=== PATIENT | female | born 1985 | race Caucasian/White ===

== ENCOUNTER 2017-03-21 12:37 | Emergency (ER) | payer BC ==
[2017-03-21 13:47] LABS: BACTERIA, URINE MANY /hpf; COMMENT (UR) CULTURE INDICATED; CULTURE IF INDICATED CULTURE INDICATED; SQUAMOUS EPITHELIAL CELL URINE <1 /hpf (0-5)
[2017-03-21 13:49] LABS: BLOOD, URINE NEG (NEG); GLUCOSE,URINE NEG (NEG); KETONE, URINE NEG (NEG); NITRITE,URINE NEG (NEG); PH, URINE 6.5 (5.0-8.5); URINE COLOR LIGHT YELLOW (YELLW/STRAW)
[2017-03-21] MEDS ORDERED: LACTATED RINGER'S 1000 ML INJ 1,000 ML IV SCH (14:00)
[2017-03-21 14:15] VITALS: PULSE 74
[2017-03-21] MEDS: TERBUTALINE INJ 1 MG/ML AMP SQ PRN ×2 (14:16→15:04)
[2017-03-21 14:20] VITALS: PULSE 74
[2017-03-21] MEDS ORDERED: MACR100C2 PO (14:54)
--- NOTE | 2017-03-21 14:55 | PD ---
HPI Chief Complaint Back pain lower abdominal pain Date Seen: Mar 21, 2017 Time Seen: 13:00 Travel History International Travel<30 Days: No Contact w/Intl Traveler<30Days: No Known Affected Area: No History of Present Illness HPI Patient is 31-year-old white female at [address] Foley for care presents complaining of back pain generalized ,lower abdominal pain. Denies leakage of fluid bleeding or abdominal pain. heart rate tracing is reactive and she is having small frequent contractions Para: 0 : 1 History Social History Alcohol Use: No Tobacco Use: No Substance Abuse: No Allergies-Medications (Allergen,Severity, Reaction): Coded Allergies: No Known Allergies (Unverified , 03/21/17) Review of Systems General / Constitutional: No: Fever, Weight Gain, Chills, Other Eyes: No: Diploplia, Blurred Vision, Visual changes, Pain, Photophobia HENT: No: Headaches, Vertigo, Lightheadedness Cardiovascular: No: Irregular Rhythm, Chest Pain or Discomfort, Palpitations, Tachycardia, Syncope, Varicosities, Edema, Cyanosis Respiratory: No: Cough, Short of Breath, Other Gastrointestinal: No: Nausea, Vomiting, Diarrhea Genitourinary: Dysuria, No: Decreased Urinary Output, Oliguria Musculoskeletal: No: Limited ROM, Weakness, Cramping, Edema, Pain Skin: No Rash, No Itching, No Dryness, No Lumps, No Change in Pigmentation, No Change in Nails, No Alopecia, No Lesions Neurologic: No: Weakness, Dizziness, Syncope, Focal Abnormalities, Coordination Problem, Headache, Slurred Speech, Seizures Psychiatric: No: Depression, Suicidal Ideations, Homicidal Ideation Endocrine: No: Heat Intolerance, Cold Intolerance, Polydipsia, Polyuria, Other Physical Exam Vital Signs Date Time Temp Pulse Resp B/P Pulse Ox O2 Delivery O2 Flow Rate FiO2 03/21/17 14:20 74 03/21/17 14:15 74 Narrative GENERAL: Well-nourished, well-developed patient. SKIN: Warm and dry. HEAD: Normocephalic and atraumatic. EYES: No scleral icterus. No injection or drainage. ENT: No nasal drainage noted. Mucous membranes pink. Airway patent. NECK: Supple, trachea midline. No JVD. CARDIOVASCULAR: Regular rate and rhythm without murmurs, gallops, or rubs. RESPIRATORY: Breath sounds equal bilaterally. No accessory muscle use. BREASTS: Bilateral exam showed no masses , no retractions, no nipple discharge. ABDOMEN/GI: Abdomen soft, non-tender, bowel sounds present, no rebound, no guarding no CVA tenderness Gravid to [-24] weeks size Fundal Height: [-24] GENITOURINARY: External Genitalia: intact and normal in appearance fibronectin done in the posterior fornix and is negative Cervix: [-] Posterior Dilatation: [closed-] Effacement: [-thick] Station: [-3] Membranes: [intact ] Uterine Contractions: [Positive small frequent contractions-] FHT's: Category: [1-] Baseline: [133-] Reactive: [yes-] Variability: [-mod] Decels: [Occasional variable deceleration-] EXTREMITIES: No cyanosis or edema. BACK: Nontender without obvious deformity. No CVA tenderness. NEUROLOGICAL: Awake and alert. Motor and sensory grossly within normal limits. Five out of 5 muscle strength in all muscle groups. Normal speech. Data Data Orders Urinalysis - C+S If Indicated (03/21/17 13:31) Vital Signs (Adult) .ON ADMISSION (03/21/17 13:46) ^ Labor Status (03/21/17 13:46) Fibronectin (03/21/17 13:46) Lactated Ringer's 1000 Ml Inj (Lr 1000 M (03/21/17 14:00) Terbutaline Inj (Brethine Inj) (03/21/17 14:00) Fentanyl Inj (Fentanyl Inj) (03/21/17 14:00) Urine Culture (03/21/17 13:20) Labs Laboratory Tests Test 03/21/17 03/21/17 13:20 13:42 Urine Color LIGHT YELLOW Urine Turbidity CLEAR Urine pH 6.5 Urine Specific [place] 1.007 Urine Protein NEG Urine Glucose (UA) NEG Urine Ketones NEG Urine Occult Blood NEG Urine Nitrite NEG Urine Bilirubin NEGATIVE Urine Urobilinogen LESS THAN 2.0 Urine Leukocyte Esterase NEGATIVE Urine RBC 1 Urine WBC 1 Urine Squamous Epithelial <1 Cells Urine Bacteria MANY Microscopic Urinalysis Comment CULTURE INDICATED Fibronectin NEGATIVE Date/Time Procedure Status Source Growth 03/21/17 13:20 Urine Culture Received Urine Clean Catch Pending MDM Interpretation(s) Patient is 31-year-old white female at 24 weeks who presents planning of generalized back pain urinary tract symptoms patient says she feels like she has a UTI because it estes when she wipes but not during micturition. She has some lower abdominal discomfort. On here on OB ED she is estelle somewhat small frequent little contractions of low amplitude, there is no leakage of fluid or bleeding. Cervix is closed thick and high prior to cervical exam fibronectin that was done which was negative. The patient urinalysis showed many bacteria and was needed for culture but otherwise did not show much she was given liter of IV fluid 1 dose of subcutaneous terbutaline 0.25 mg and 25 g of fentanyl IV for tocolyse is. This was successful in that the contractions decreased to just barely perceptible to nonexistent Plan Plan to begin the patient on Macrobid 100 mg by mouth twice a day for to follow- up with her OB provider. She is to increase her fluid intake at home Tylenol liberally when necessary for pain and she can use a heating pad or hot bath for comfort measures. Diagnosis Diagnosis: Primary Impression: UTI (urinary tract infection) in in third trimester Additional Impression: Uterine contractions during Disposition: 01 DISCHARGE HOME Condition: Stable Scripts Nitrofurantoin Monohydrate Macrocrystals (Macrobid)100 Mg Vib159 Mg PO BID #14 CAP Ref 0 Prov:Roger Valdez II, MD 03/21/17 Patient Instructions: General Instructions, Diet (GEN), Having Your Baby: The Labor Process (GEN) Departure Forms: Tests/Procedures Roger Valdez II, MD Mar 21, 2017 14:54
[2017-03-21] MEDS ORDERED: TERBUTALINE INJ 1 MG/ML AMP SQ ONE (16:00)
== END 2017-03-21 15:58 | disposition home or self-care (01) ==
LOC: HOBED 12:37
DX: O23.42 Unspecified infection of urinary tract in pregnancy, second trimester (principal); O62.9 Abnormality of forces of labor, unspecified; Z3A.24 24 weeks gestation of pregnancy
CPT/HCPCS: 81001; 82731; 87086; 96372; 96374; 99284; J3010; J3105; J7120

== ENCOUNTER 2017-07-07 01:41 | Inpatient (IN) | payer BC ==
[~2017-07-07] VITALS: Ht 182.9 cm; Wt 79.4 kg
[2017-07-07] VITALS (12 sets, daily range): BP systolic 88–140; BP diastolic 54–102; PULSE 59–181; RESP 16–18; TEMP 97.7–99.2
[~2017-07-07 01:41] MED LIST: MACR100C2 PO
[2017-07-07] MEDS ORDERED: LACTATED RINGER'S 1000 ML INJ 1,000 ML IV PRN (02:08)
[2017-07-07] MEDS ORDERED: LACTATED RINGER'S 1000 ML INJ 1,000 ML IV SCH (02:08)
--- NOTE | 2017-07-07 02:08 | HHI.HP ---
HPI Chief Complaint Contraction pain Date Seen: Jul 07, 2017 Time Seen: 02:00 Travel History International Travel<30 Days: No Contact w/Intl Traveler<30Days: No Known Affected Area: No History of Present Illness HPI This patient is 32-year-old white female at 40 weeks gestation presents complaining of contraction pain. Denies bleeding or leakage of fluid. heart rate tracing is reactive and she is estelle every 3 minutes, she sees Dr. Foley for care and saw her yesterday morning was closed she's currently 5 cm 90% -1 Weeks Gestation: 40 Para: 0 : 1 History Social History Alcohol Use: No Tobacco Use: No Substance Abuse: No Allergies-Medications (Allergen,Severity, Reaction): Coded Allergies: No Known Allergies (Unverified , 03/21/17) Home Meds Active Scripts Nitrofurantoin Monohydrate Macrocrystals (Macrobid) 100 Mg Cap, 100 MG PO BID for Infection, #14 CAP 0 Refills Prov:Roger Valdez II, MD 03/21/17 Review of Systems General / Constitutional: No: Fever, Weight Gain, Chills, Other Eyes: No: Diploplia, Blurred Vision, Visual changes, Pain, Photophobia HENT: No: Headaches, Vertigo, Lightheadedness Cardiovascular: No: Irregular Rhythm, Chest Pain or Discomfort, Palpitations, Tachycardia, Syncope, Varicosities, Edema, Cyanosis Respiratory: No: Cough, Short of Breath, Other Gastrointestinal: Abdominal Pain, No: Nausea, Vomiting, Diarrhea Genitourinary: No: Decreased Urinary Output, Oliguria Musculoskeletal: No: Limited ROM, Weakness, Cramping, Edema, Pain Skin: No Rash, No Itching, No Dryness, No Lumps, No Change in Pigmentation, No Change in Nails, No Alopecia, No Lesions Neurologic: No: Weakness, Dizziness, Syncope, Focal Abnormalities, Coordination Problem, Headache, Slurred Speech, Seizures Psychiatric: No: Depression, Suicidal Ideations, Homicidal Ideation Endocrine: No: Heat Intolerance, Cold Intolerance, Polydipsia, Polyuria, Other Physical Exam Narrative GENERAL: Well-nourished, well-developed patient. SKIN: Warm and dry. HEAD: Normocephalic and atraumatic. EYES: No scleral icterus. No injection or drainage. ENT: No nasal drainage noted. Mucous membranes pink. Airway patent. NECK: Supple, trachea midline. No JVD. CARDIOVASCULAR: Regular rate and rhythm without murmurs, gallops, or rubs. RESPIRATORY: Breath sounds equal bilaterally. No accessory muscle use. BREASTS: Bilateral exam showed no masses , no retractions, no nipple discharge. ABDOMEN/GI: Abdomen soft, non-tender, bowel sounds present, no rebound, no guarding Gravid to [-40] weeks size Fundal Height: [40-] GENITOURINARY: External Genitalia: intact and normal in appearance BUS glands: [-] Cervix: [-] Dilatation: [5-] Effacement: [90-] Station: [-1] Presentation: [vtx-] Membranes: [intact ] Uterine Contractions: [q 3 min-] FHT's: Category: [1-] Baseline: [133-] Reactive: [yes-] Variability: [-mod] Decels: [-] EXTREMITIES: No cyanosis or edema. BACK: Nontender without obvious deformity. No CVA tenderness. NEUROLOGICAL: Awake and alert. Motor and sensory grossly within normal limits. Five out of 5 muscle strength in all muscle groups. Normal speech. Caprini VTE Risk Assessment Caprini VTE Risk Assessment: No/Low Risk (score <= 1) Caprini Risk Assessment Model Point Value = 1 Point Value = 2 Point Value = 3 Point Value = 5 Age 41-60 Minor surgery BMI > 25 kg/m2 Swollen legs Varicose veins or History of unexplained or recurrent spontaneous Oral contraceptives or hormone replacement Sepsis (< 1 month) Serious lung disease, including pneumonia (< 1 month) Abnormal pulmonary function Acute myocardial infarction Congestive heart failure (< 1 month) History of inflammatory bowel disease Medical patient at bed rest Age 61-74 Arthroscopic surgery Major open surgery (> 45 min) Laparoscopic surgery (> 45 min) Malignancy Confined to bed (> 72 hours) Immobilizing plaster cast Central venous access Age >= 75 History of VTE Family history of VTE Factor V Leiden Prothrombin [id number] Lupus anticoagulant Anticardiolipin antibodies Elevated serum homocysteine Heparin-induced thrombocytopenia Other congenital or acquired thrombophilia Stroke (< 1 month) Elective arthroplasty Hip, pelvis, or leg fracture Acute spinal cord injury (< 1 month) Prophylaxis Regimen Total Risk Factor Score Risk Level Prophylaxis Regimen 0-1 Low Early ambulation 2 Moderate Order ONE of the following: *Sequential Compression Device (SCD) *Heparin 5000 units SQ BID 3-4 Higher Order ONE of the following medications: *Heparin 5000 units SQ TID *Enoxaparin/Lovenox 40 mg SQ daily (WT < 150 kg, CrCl > 30 mL/min) *Enoxaparin/Lovenox 30 mg SQ daily (WT < 150 kg, CrCl > 10-29 mL/min) *Enoxaparin/Lovenox 30 mg SQ BID (WT < 150 kg, CrCl > 30 mL/min) AND/OR *Sequential Compression Device (SCD) 5 or more Highest Order ONE of the following medications: *Heparin 5000 units SQ TID (Preferred with Epidurals) *Enoxaparin/Lovenox 40 mg SQ daily (WT < 150 kg, CrCl > 30 mL/min) *Enoxaparin/Lovenox 30 mg SQ daily (WT < 150 kg, CrCl > 10-29 mL/min) *Enoxaparin/Lovenox 30 mg SQ BID (WT < 150 kg, CrCl > 30 mL/min) AND *Sequential Compression Device (SCD) Assessment/Plan Assessment and Plan This patient is 32-year-old white female at 40 weeks presents planning of contraction pain. Cervix is 5 cm/90%/-1 with intact membranes, heart rate tracing is reactive and contractions are regular. Impression-active labor 40 weeks Plan is admission for labor management and anticipate vaginal delivery we'll discuss with Dr. Mayorga called by Roger Tillman II, MD Jul 07, 2017 02:08
[2017-07-07] MEDS ORDERED: PENICILLIN G POTASSIUM INJ 5,000,000 UNITS in SODIUM CHLORIDE 0.9% INJ 100 ML IV ONE (02:15)
[2017-07-07] MEDS ORDERED: MINERAL OIL 10 ML VIAL TOPICAL PRN (02:15)
[2017-07-07] MEDS ORDERED: SODIUM CHLORID 0.9% 500 ML INJ 500 ML IV PRN (02:15)
[2017-07-07] MEDS ORDERED: ONDANSETRON HCL 4 MG/2 ML VIAL IV PUSH PRN (02:15)
[2017-07-07] MEDS ORDERED: LIDOCAINE HCL 1% 50 ML VIAL I-DERMAL PRN (02:15)
[2017-07-07] MEDS ORDERED: CITRIC ACID-SODIUM CITRATE LIQ 30 ML UDC PO SCH (02:15)
[2017-07-07] MEDS ORDERED: LIDOCAINE HCL 1% 50 ML VIAL INFIL PRN (02:15)
[2017-07-07] MEDS ORDERED: OXYTOCIN 30 UNITS-500ML PREMIX 500 ML IV ONE (02:15)
[2017-07-07] MEDS ORDERED: SODIUM CHLOR 0.9% 1000 ML INJ 1,000 ML IV PRN (02:28)
[2017-07-07 02:51] LABS: BACTERIA, URINE FEW /hpf; BLOOD, URINE NEG (NEG); COMMENT (UR) CULT NOT INDICATED; CULTURE IF INDICATED CULT NOT INDICATED; GLUCOSE,URINE NEG (NEG); KETONE, URINE TRACE mg/dL (NEG); NITRITE,URINE NEG (NEG); PH, URINE 6.5 (5.0-8.5); SQUAMOUS EPITHELIAL CELL URINE <1 /hpf (0-5); URINE COLOR LIGHT-YELLOW (YELLW/STRAW)
[2017-07-07 02:51] LABS: AUTOMATED NEUTROPHIL # 10.6 TH/MM3 (1.8-7.7); BASOPHIL % 0.3 % (0.0-2.0); EOSINOPHIL % 0.1 % (0.0-4.0); HEMATOCRIT 37.2 % (35.0-46.0); HEMO FLAGS DIFF FINAL; LYMPH % 14.5 % (9.0-44.0); LYMPHOCYTE # 1.9 TH/MM3 (1.0-4.8); MEAN CELL VOLUME 91.1 FL (80.0-100.0); MEAN CORPUSCULAR HEMOGLOBIN 31.1 PG (27.0-34.0); MEAN CORPUSCULAR HGB CONC 34.1 % (32.0-36.0); MONO % 5.6 % (0.0-8.0); NEUT % 79.5 % (16.0-70.0); PLATELET COUNT 242 TH/MM3 (150-450); RED BLOOD COUNT 4.08 MIL/MM3 (4.00-5.30); RED CELL DISTRIBUTION WIDTH 12.9 % (11.6-17.2); WHITE BLOOD COUNT 13.4 TH/MM3 (4.0-11.0)
[2017-07-07] MEDS ORDERED: PRENCAP10 PO (03:20)
--- NOTE | 2017-07-07 06:12 | PD.OB.DELI ---
Weeks gestation: 40 Gest age assessed date: Jul 07, 2017 Gest age assessed time: 05:00 Pt started active labor?: Yes Medical induction of labor?: No Artificial rupture of membrane: No Anesthesia: None Episiotomy: None Vaginal Delivery: Normal Presentation: Occiput anterior Nuchal Cord: None Delayed cord clamping (45 sec): Yes : Male Delivery date: Jul 07, 2017 Delivery time: 05:44 One Minute : 8 Five Minute : 9 Weight: 8#2oz Placenta: Spontaneous delivery Laceration: Perineal laceration, 2 deg Repair: Chromic running Estimated blood loss: 300 mL Sherley Mayorga MD Jul 07, 2017 06:12
[2017-07-07] MEDS ORDERED: PENICILLIN G POTASSIUM INJ 2,500,000 UNITS in SODIUM CHLORIDE 0.9% INJ 100 ML IV SCH (06:15)
[2017-07-07] MEDS ORDERED: BENZOCAINE 20% TOPICAL SPRAY 60 ML CAN TOPICAL PRN (06:15)
[2017-07-07] MEDS ORDERED: ALUMINUM/MAGNESIUM/SIMETH 30 ML CUP PO PRN (06:15)
[2017-07-07] MEDS ORDERED: ZOLPIDEM TARTRATE 5 MG TAB PO PRN (06:15)
[2017-07-07] MEDS ORDERED: OXYTOCIN 30 UNITS-500ML PREMIX 500 ML IV SCH (06:15)
[2017-07-07] MEDS ORDERED: WITCH HAZEL 50%/GLYCERIN 12.5% 40 PAD JAR TOPICAL PRN (06:15)
[2017-07-07] MEDS ORDERED: DOCUSATE SODIUM 50 MG/SENNA 8.6 MG TAB PO PRN (06:15)
[2017-07-07] MEDS ORDERED: SODIUM CHLORIDE 0.9% FLUSH 10 ML FLUSH IV FLUSH PRN (06:15)
[2017-07-07] MEDS ORDERED: ONDANSETRON ODT 4 MG TAB PO PRN (06:15)
[2017-07-07] MEDS: IBUPROFEN 600 MG TAB PO PRN ×3 (06:32→20:25)
[2017-07-07] MEDS ORDERED: SODIUM CHLORIDE 0.9% FLUSH 10 ML FLUSH IV FLUSH SCH (09:00)
[2017-07-07] MEDS ORDERED: DIPHTH/TETANUS/ACEL PERTUSSIS (BOOSTER) 0.5 ML VIAL/PFS IM ONE (16:00)
[2017-07-07] MEDS ORDERED: MEASLES, MUMPS, RUBELLA VACCINE 0.5 ML VIAL SQ ONE (16:00)
[2017-07-07] MEDS: ACETAMINOPHEN 325 MG TAB PO PRN (20:29)
[2017-07-08] MEDS: IBUPROFEN 600 MG TAB PO PRN ×3 (03:58→19:46)
[2017-07-08] MEDS: ACETAMINOPHEN 325 MG TAB PO PRN ×2 (03:58→18:31)
--- NOTE | 2017-07-08 08:34 | HHI.OB ---
Subjective Post Day: 1 Remarks doing well with nursing no circumcision desired Objective Vitals/I&O Vital Signs Date Time Temp Pulse Resp B/P (MAP) Pulse Ox O2 Delivery O2 Flow Rate FiO2 07/07/17 21:05 99.2 83 18 07/07/17 21:05 88/54 (65) 07/07/17 11:00 104/64 (77) Objective Remarks GENERAL: Well-nourished, well-developed patient. CARDIOVASCULAR: Regular rate and rhythm without murmurs, gallops, or rubs. RESPIRATORY: Breath sounds equal bilaterally. No accessory muscle use. ABDOMEN/GI: Abdomen soft, non-tender. Fundus: Firm, non-tender at umbilicus. GENITOURINARY: Light to moderate bleeding. EXTREMITIES: No cyanosis or edema, non-tender, without signs of DVT. Medications and IVs Current Medications Medications (Trade) Dose Ordered Sig/Sierra Route Start Time Stop Time Status Last Admin (NS Flush) 2 ml BID IV FLUSH 07/07/17 09:00 (NS Flush) 2 ml UNSCH PRN IV FLUSH 07/07/17 06:15 (Tylenol) 650 mg Q4H PRN PO 07/07/17 06:15 07/08/17 03:58 (Motrin) 600 mg Q6H PRN PO 07/07/17 06:15 07/08/17 03:58 (Americaine 20% Top Spr) 1 spray Q4H PRN TOPICAL 07/07/17 06:15 (Tucks Pads) 1 applic QID PRN TOPICAL 07/07/17 06:15 (Denise-Colace) 2 tab Q12H PRN PO 07/07/17 06:15 07/07/17 13:25 (Ambien) 5 mg HS PRN PO 07/07/17 06:15 (Mag-Al Plus Susp Liq) 15 ml Q8H PRN PO 07/07/17 06:15 (Zofran Odt) 4 mg Q6H PRN PO 07/07/17 06:15 Assessment/Plan Assessment and Plan PPD 1 uneventful delivery and first night anticipate discharge in am Urvashi Camarillo MD Jul 08, 2017 08:34
[2017-07-08 15:00] VITALS: RESP 18
[2017-07-09] MEDS: ACETAMINOPHEN 325 MG TAB PO PRN ×2 (01:48→08:06)
[2017-07-09] MEDS: IBUPROFEN 600 MG TAB PO PRN ×2 (01:48→08:06)
[2017-07-09 08:00] VITALS: BP 96/66; PULSE 61; RESP 16; TEMP 97.5
--- NOTE | 2017-07-09 09:38 | HHI.OB ---
Subjective Post Day: 2 Remarks Doing well and ready for discharge nursing well Objective Vitals/I&O Vital Signs Date Time Temp Pulse Resp B/P (MAP) Pulse Ox O2 Delivery O2 Flow Rate FiO2 07/09/17 08:00 97.5 07/09/17 08:00 61 16 96/66 (76) 07/08/17 15:00 18 Objective Remarks GENERAL: Well-nourished, well-developed patient. CARDIOVASCULAR: Regular rate and rhythm without murmurs, gallops, or rubs. RESPIRATORY: Breath sounds equal bilaterally. No accessory muscle use. ABDOMEN/GI: Abdomen soft, non-tender. Fundus: Firm, non-tender at umbilicus. GENITOURINARY: Light to moderate bleeding. EXTREMITIES: No cyanosis or edema, non-tender, without signs of DVT. Medications and IVs Current Medications Medications (Trade) Dose Ordered Sig/Sierra Route Start Time Stop Time Status Last Admin (NS Flush) 2 ml BID IV FLUSH 07/07/17 09:00 (NS Flush) 2 ml UNSCH PRN IV FLUSH 07/07/17 06:15 (Tylenol) 650 mg Q4H PRN PO 07/07/17 06:15 07/09/17 08:06 (Motrin) 600 mg Q6H PRN PO 07/07/17 06:15 07/09/17 08:06 (Americaine 20% Top Spr) 1 spray Q4H PRN TOPICAL 07/07/17 06:15 (Tucks Pads) 1 applic QID PRN TOPICAL 07/07/17 06:15 07/08/17 18:31 (Denise-Colace) 2 tab Q12H PRN PO 07/07/17 06:15 07/07/17 13:25 (Ambien) 5 mg HS PRN PO 07/07/17 06:15 (Mag-Al Plus Susp Liq) 15 ml Q8H PRN PO 07/07/17 06:15 (Zofran Odt) 4 mg Q6H PRN PO 07/07/17 06:15 Assessment/Plan Assessment and Plan PPD 1 uneventful delivery and first night anticipate discharge in am PPD 2 all well home and return in 2-5 weeks Urvashi Camarillo MD Jul 09, 2017 09:38
[2017-07-09] MEDS ORDERED: IBUP-232 PO (09:39)
--- NOTE | 2017-07-09 09:40 | HHI.DCPOC ---
Discharge Care Plan Report Symptoms to Your Doctor -Temperature above 100.5 degrees -Redness, of incision or excessive or foul smelling drainage -Unusual pain or calf pain -Increased vaginal bleeding -Painful or difficulty urinating -Feelings of extreme sadness or anxiety after 2 weeks Goals to Promote Your Health * To prevent worsening of your condition and complications * To maintain your health at the optimal level Directions to Meet Your Goals Take your medications as prescribed Follow your dietary instruction Follow activity as directed Ensure plenty of rest for recovery Drink fluids for hydration Keep your appointments as scheduled Take your immunizations and boosters as scheduled If your symptoms worsen call your PCP, if no PCP go to Urgent Care Center or Emergency Room Smoking is Dangerous to Your Health. Avoid second hand smoke Call the 24-hour crisis hotline for domestic abuse at Urvashi Camarillo MD Jul 09, 2017 09:39
== END 2017-07-09 10:45 | disposition home or self-care (01) | DRG 775 ==
LOC: HOBED 01:41 → H2EB 02:13 → H1EA 08:06
PROVIDERS: ADMIT Obstetrics & Gynecology; ATTEND Obstetrics & Gynecology
PROC: 10E0XZZ Delivery of Products of Conception, External Approach (ICD-10-PCS; principal; 2017-07-07)
PROC: 0KQM0ZZ Repair Perineum Muscle, Open Approach (ICD-10-PCS; 2017-07-07)
DX: O70.1 Second degree perineal laceration during delivery (principal); Z37.0 Single live birth; Z3A.40 40 weeks gestation of pregnancy
CPT/HCPCS: 59025; 81001; 85025; 86900; 86901; J2540; J2590; J7120